=== PATIENT | female | born 1980 | race Caucasian/White ===

== ENCOUNTER → 2023-11-26 13:16 | Outpatient (REF) | payer BC, SELFPAY | LOC: WDC 13:16 | PROVIDERS: ATTENDING PHYSICIAN Family Medicine | DX: Z12.31 Encounter for screening mammogram for malignant neoplasm of breast (principal) | CPT/HCPCS: 77063; 77067 ==

== ENCOUNTER 2024-09-26 09:08 | Emergency (ER) | payer BC, SELFPAY ==
[2024-09-26 09:23] VITALS: BP 97/58
--- NOTE | 2024-09-26 10:29 | ED.GENMED ---
History of Present Illness
General
Chief Complaint: Abdominal Pain
Source: patient
Exam Limitations: none
Time Seen by Provider: 09/26/24 10:28
Nursing documentation reviewed up to this point in time: agreed with
History of Present Illness
History of Present Illness:
44-year-old female presenting to the emergency department today with concerns of worsening right lower quad abdominal pain over the past 2 days rating to her right back. Also has had flulike symptoms over the past week or so. Denies specific
fevers over the past 24 hours. Denies chest pain shortness of breath nausea vomiting has had ongoing upper respiratory symptoms
Past History
Past History
ED Past Medical History: None
ED Past Surgical History: and Other (Vein stripping)
Social History
Tobacco: Non-smoker
Alcohol: None
Drug: None
Personal:
Living: with family
Employment: Employed
Family History
Family History: Other (Noncontributory)
Review of Systems
Review of Systems
Allergies reviewed?: Yes
All Other Systems: ROS reviewed and negative except as documented in HPI and ROS
Phy Exam
Physical Exam
Physical Exam:
GENERAL: Alert , in no apparent distress
EYE: pupils equal and reactive
NECK: Supple, no significant adenopathy.
ENT: o/p clr, mmm.
CARDIAC: Regular rate and rhythm .
LUNGS: Clear breath sounds bilaterally, no acute respiratory distress, no wheezes/rales/rhonchi
ABDOMEN: Significant discomfort to light palpation of the right lower quad abdomen guarding
NEUROLOGICAL: Alert and oriented, no focal neuro deficits
SKIN: Warm and dry, skin intact.
MUSCULOSKELETAL: No edema, well perfused.
PSYCH: Normal and appropriate interaction.
Course
Orders/Labs/Results
Orders:
Orders
09/26/24 10:28
CT Abd/Pel (IV only)-DH only Urgent
Comment:
Reason For Exam: rlq pain
Ketorolac [Toradol] 30 mg IM NOW STA
09/26/24 11:17
Beta Hcg Serum Qualitative Screen [HCG, Serum Qualitative Screen] Urgent
COVID-19 Antigen Urgent
Source: Nasal Swab
Complete Blood Count/With Diff Urgent
Comprehensive Metabolic Panel Urgent
Lipase Urgent
Urinalysis Reflex To Culture Urgent
Date Specimen was Collected: 09/26/24
Time Specimen was Collected: :28
Urine Microscopic Reflex Cult Urgent
Influenza A+B Rapid Molecular Urgent
LAURA Source: Nasal Swab
Specimen Description:
Date Specimen was Collected: 09/26/24
Time Specimen was Collected: :28
Urine Culture Urgent
LAURA Source: U
Specimen Description:
Date Specimen was Collected: 09/26/24
Time Specimen was Collected: :28
09/26/24 11:20
Test Result ONCE
Abnormal Lab Results
09/26/24
11:17
WBC 3.9 L 10^3/uL
(4.8-10.8)
Absolute Lymphs (auto) 0.9 L 10^3/uL
(1.2-3.4)
Absolute Monos (auto) 0.7 H 10^3/uL
(0.1-0.6)
Monocytes % 16.8 H %
(1.7-9.3)
AST 95 H U/L
(14-36)
ALT 105 H U/L
(0-35)
Leukocyte Esterase Rfl 2+ A
(Negative)
Urine Bacteria (Reflex) Moderate A
(Negative)
09/26/24 11:17
09/26/24 11:17
Vital Signs
Initial and Last Documented VS:
Initial Vital Signs
Temp Pulse Resp BP Pulse Ox
98.5 F 93 20 97/58 96
09/26/24 09:23 09/26/24 09:23 09/26/24 09:23 09/26/24 09:23 09/26/24 09:23
Last Documented Vital Signs
Temp Pulse Resp BP Pulse Ox
98.5 F 98 18 104/68 99
09/26/24 09:23 09/26/24 11:05 09/26/24 11:05 09/26/24 11:05 09/26/24 11:05
MDM/Problems Addressed
MDM/Problems Addressed:
44-year-old female presenting with concerns of right lower quadrant Todd pain over the past 2 days. This was preceded by viral illness over the past week or so. On arrival vital signs are normal patient no distress but does have significant and
exquisite discomfort to the right lower quadrant plan for CT scan for further assessment. CT scan was ordered due to the patient having significant discomfort to the right lower quadrant. CT scan did not show emergent process other than some
potential bladder wall thickening this was discussed with the patient she denies any urinary symptoms urinalysis seems to be less consistent with a UTI this was sent for culture otherwise she believes she may have pulled a muscle due to coughing
over the past week this does seem potentially reasonable she will follow-up closely with the primary care doctor but otherwise stable for outpatient management return precautions given.
*Critical Care Note
Total Time (30-74mins, 75-104mins- exclusive of procedures): Not Applicable
ED Attending Note
-
Portions of this chart may have been created with voice recognition software.� Occasional wrong word or��sound alike� substitutions may have occurred due to the inherent limitations of voice recognition software.
Discharge Plan
Departure
Patient Disposition: Home (Routine Discharge)
Date of Disposition: 09/26/24
Time of Disposition: 14:27
Patient with high blood pressure during this ER visit?: No
Condition: Good
Covid-19: Not Applicable
Discharge Problem:
Abdominal pain
Instructions: Abdominal Pain
Prescriptions:
No Action
hydrocortisone acetate 25 MG suppository
25 mg MD HS Qty: 7 0RF
Referrals:
Cee Steel DO [Family Provider] -
Activity Restrictions/Additional Instructions:
You came to the emergency department today with concerns of lower abdominal discomfort. You had a reassuring assessment. Please follow-up closely as an outpatient. Return to the emergency department for any worsening, new or concerning symptoms.
Interventions
Interventions:
*Risk Screen - Suicide Last Done: 09/26/24 09:23
*General Assessment Last Done: 09/26/24 09:23
*Neglect/Abuse Screening Last Done: 09/26/24 09:23
ED- Fall Risk Assessment Last Done: 09/26/24 11:03
*ED COVID-19 Vaccine History Last Done: 09/26/24 10:56
BC-Cradko-Phiuykdtrn Assessment Last Done: 09/26/24 11:02
Discharge Date and Time
Print Language: SETSWANA
[2024-09-26 11:05] VITALS: BP 104/68
[2024-09-26] MEDS: TORADOL 30 MG IM (11:19)
[2024-09-26 11:35] LABS: % Basophils 0.5 % (0-2); % Immature Granulocytes 0.3 % (0-0.5); % Lymphocytes 22.5 % (20.5-51.1); % Monocytes 16.8 % (1.7-9.3); % Neutrophils 58.9 % (42.2-75.2); Absolute Lymphocytes 0.9 10^3/uL (1.2-3.4); Absolute Monocytes 0.7 10^3/uL (0.1-0.6); Absolute Neutrophils 2.3 10^3/uL (1.4-6.5); Hematocrit 39.3 % (37.0-47.0); Mean Corp Hgb Conc. 33.1 g/dL (33.0-37.0); Mean Corpuscular Hgb 28.4 pg (27.0-31.0); Mean Corpuscular Volume 85.8 fL (81.0-99.0); Mean Platelet Volume 10.1 fL (7.4-10.4); Nucleated Red Blood Cells % 0 %; Platelet Count 153 10^3/uL (130-400); Red Blood Cell Count 4.58 10^6/uL (4.20-5.40); Red Cell Dist. Width 12.3 % (11.5-14.5); White Blood Cell Count 3.9 10^3/uL (4.8-10.8)
[2024-09-26 11:36] LABS: Urine Albumin Negative (Neg - Trace); Urine Bilirubin Negative (Negative); Urine Character Clear (Clear); Urine Color Yellow; Urine Glucose Negative (Negative); Urine Ketone Negative (Negative); Urine Leukocyte 2+ (Negative); Urine Nitrite Negative (Negative); Urine Occult Blood Negative (Negative); Urine Specific Gravity 1.015 (<1.030); Urine Urobilinogen Negative (Neg - 1+)
[2024-09-26 11:45] LABS: Urine Squamous Cell >30 /LPF (Few)
[2024-09-26 11:46] LABS: Urine Bacteria Moderate (Negative); Urine Red Blood Cell None Seen /HPF (0-2)
[2024-09-26 11:53] LABS: COVID-19 Antigen Negative (Negative)
[2024-09-26 12:03] LABS: ALT (SGPT) 105 U/L (0-35); AST (SGOT) 95 U/L (14-36); Albumin 4.7 g/dl (3.5-5.0); Alkaline Phosphatase 111 U/L (38-126); Blood Urea Nitrogen 9 mg/dl (7-17); Calcium 8.9 mg/dl (8.4-10.2); Carbon Dioxide 30 mmol/L (22-30); Chloride 98 mmol/L (98-107); Glucose 99 mg/dl (70-99); Lipase 30 U/L (23-300); Potassium 3.8 mmol/L (3.5-5.1); Sodium 138 mmol/L (135-145); Total Bilirubin 0.4 mg/dl (0.2-1.3); Total Protein 7.6 g/dl (6.3-8.2); eGFR > 60.00
[2024-09-26 12:26] LABS: HCG, Serum Qualitative Screen Negative
[2024-09-26 14:34] VITALS: BP 111/65
== END 2024-09-26 14:35 | disposition home or self-care (01) ==
LOC: EMR 09:08
PROVIDERS: EMERGENCY PHYSICIAN Emergency Medicine; FAMILY PHYSICIAN Family Medicine
DX: R10.31 Right lower quadrant pain (principal)
CPT/HCPCS: 96372; 99284; 74177; 80053; 81003; 81015; 83690; 84703; 85025; 87086; 87502; 87811; Q9967

== ENCOUNTER → 2024-11-26 19:54 | Outpatient (REF) | payer BC, SELFPAY | LOC: WDC 19:54 | PROVIDERS: ATTENDING PHYSICIAN Family Medicine | DX: Z12.31 Encounter for screening mammogram for malignant neoplasm of breast (principal) | CPT/HCPCS: 77063; 77067 ==